=== PATIENT | female | born 1960 | race American Indian/Alaskan Native ===

== ENCOUNTER 2021-06-27 09:43 | Outpatient (CLI) | payer MEDICARE ==
[2021-06-27 10:28] LABS: Hematocrit 43.1 % (30.3-42.9); Hemoglobin 14.1 gm/dl (10.1-14.3); Mean Corpuscular HGB Conc 33 % (30-34); Mean Corpuscular Volume 80 fl (79-97); Platelet Count 235 K/mm3 (140-440); Red Blood Count 5.39 M/mm3 (3.65-5.03); Red Cell Distribution Width 14.6 % (13.2-15.2)
[2021-06-27 10:40] LABS: ABG Base Excess -0.6 mmol/L (-2.0-3.0); ABG HCO3 22.9 mmol/L (20.0-26.0); ABG Methemoglobin 0.7 % (0.0-1.5); ABG Oxygen Saturation 91.4 % (95.0-99.0); ABG PCO2 34.4 mm Hg; ABG PH 7.441 pH Units (7.350-7.450); ABG PO2 55.1 mm Hg (80.0-90.0)
[2021-06-27 10:53] LABS: Alanine Aminotransferase 12 units/L (7-56); Albumin 3.9 g/dL (3.9-5); Blood Urea Nitrogen 16 mg/dL (7-17); Calcium 9.3 mg/dL (8.4-10.2); Chol/HDL Ratio 2.76 %; HDL Cholesterol 65 mg/dL (40-59); Hemolysis Index 3; LDL Cholesterol,Direct 108 mg/dL (50-130)
[2021-06-27 10:57] LABS: BUN/Creatinine Ratio 27
--- NOTE | 2021-06-27 11:20 | XRay Report ---
XR chest routine 2V INDICATION / CLINICAL INFORMATION: COPD. COMPARISON: None available. FINDINGS: SUPPORT DEVICES: None. HEART /PULMONARY VASCULATURE: No significant abnormality. LUNGS / PLEURA: The lungs are hyperexpanded, compatible with emphysema. Streaky opacities in the righ t lung base likely reflect volume loss or scarring. No acute airspace consolidation. No sizable pleur al effusion. No pneumothorax. ADDITIONAL FINDINGS: No significant additional findings. IMPRESSION: 1. No acute findings. Signer Name: Juan Luis Freeman MD Signed: 06/27/2021 11:16 AM Workstation Name: [id number]
--- NOTE | 2021-06-27 12:02 | Cat Scan Report ---
CT CHEST WITH CONTRAST INDICATION / CLINICAL INFORMATION: Shortness of breath. TECHNIQUE: Axial CT images were obtained through the chest after 100 cc of Omnipaque [address] scans at this location are performed using CT dose reduction for ALARA by means of automated exposure control. COMPARISON: Chest x-ray dated 06/27/2021 FINDINGS: HEART: No significant abnormality. CORONARY ARTERY CALCIFICATION: Present -- Moderate. THORACIC AORTA: Mild atherosclerotic calcification without acute abnormality. MEDIASTINUM / EMELI: No significant abnormality. PLEURA: No pleural effusion. No pneumothorax. LUNGS: Moderate to severe centrilobular emphysematous changes are identified throughout both lungs. T here is minor linear scarring or atelectasis in the lingula and right lower lobe. No evidence for inf iltrate, nodule or interstitial lung disease. ADDITIONAL FINDINGS: None. UPPER ABDOMEN: No significant abnormality. SKELETAL SYSTEM: No significant abnormality. IMPRESSION: Moderate to severe emphysematous changes. Minor linear scarring are segmental atelectasis in the lingula and right lower lobe. No acute cardiopulmonary process identified. Signer Name: Ray Russell Jr, MD Signed: 06/27/2021 11:55 AM Workstation Name: [id number]
== END 2021-06-27 09:44 | disposition home or self-care (01) ==
LOC: CT 09:43
PROVIDERS: ATTEND Internal Medicine
DX: J43.2 Centrilobular emphysema (principal); R91.1 Solitary pulmonary nodule; R91.8 Other nonspecific abnormal finding of lung field; J98.11 Atelectasis; J30.89 Other allergic rhinitis; I10 Essential (primary) hypertension; K21.9 Gastro-esophageal reflux disease without esophagitis; I70.0 Atherosclerosis of aorta; I25.10 Atherosclerotic heart disease of native coronary artery without angina pectoris
CPT/HCPCS: 36415; 36600; 71046; 71260; 80053; 80061; 82785; 82803; 84436; 84443; 85027; Q9967